=== PATIENT | female | born 1980 | race African-American/Black ===

== ENCOUNTER → 2016-08-05 | Outpatient (CLI) | payer OTHER ==
[~2016-08-05] MED LIST: BENADRYL25 MG PO; BIRTH CONTROL; CALCIUM 500 +1 EAC5 PO; FIBER500 MG PO; FLEET ENEMA118 ML; IBUPROFEN 600600 M1 PO; MULTIVITAMINS PO; TRAMADOL 50 MG50 MG PO; VISTARIL 25 MG25 M1 PO; ZOFRAN ODT4 MG PO
== END ==
LOC: CAT 15:39
DX: R10.30 Lower abdominal pain, unspecified (principal)

== ENCOUNTER → 2017-02-17 | Outpatient (CLI) | payer OTHER ==
[~2017-02-17] MED LIST changes: +HYDROCODONE-AP1 EAC6 PO
== END ==
LOC: MRI 08:15
DX: S83.251A Bucket-handle tear of lateral meniscus, current injury, right knee, initial encounter (principal); S89.91XA Unspecified injury of right lower leg, initial encounter; M25.461 Effusion, right knee; M94.261 Chondromalacia, right knee; X58.XXXA Exposure to other specified factors, initial encounter; Y93.89 Activity, other specified; Y92.89 Other specified places as the place of occurrence of the external cause; Y99.8 Other external cause status

== ENCOUNTER 2017-04-28 12:42 | Emergency (ER) | payer OTHER ==
[~2017-04-28] VITALS: Ht 149.9 cm; Wt 63.5 kg
[2017-04-28 13:16] LABS: URINE BILIRUBIN NEGATIVE (Negative); URINE BLOOD NEGATIVE (Negative); URINE CLARITY CLEAR; URINE COLOR YELLOW; URINE GLUCOSE-RANDOM* NEGATIVE (Negative); URINE KETONES 3+ (Negative); URINE LEUKOCYTES NEGATIVE (Negative); URINE NITRITE NEGATIVE (Negative); URINE PROTEIN (DIPSTICK) NEGATIVE (Negative); URINE SPECIFIC GRAVITY 1.025 (1.005-1.035); URINE UROBILINOGEN 0.2 E.U./dl (0.2-1.0)
[2017-04-28 13:20] LABS: ABSOLUTE NEUTROPHILS 5.8 thou/uL (1.4-8.2); BASOPHILS 0.7 % (0.0-2.0); EOSINOPHILS 0.4 % (0.0-3.0); HEMATOCRIT 41.7 % (37.0-47.0); HEMOGLOBIN 14.1 gm/dL (12.0-15.0); LYMPHOCYTES 21.6 % (24.0-44.0); MCH 29.5 pg (26.0-34.0); MCHC 33.8 g/dL (28.0-37.0); MCV 87.4 fL (80.0-100.0); MONOCYTES 8.6 % (1.0-8.0); PLATELET COUNT 190 thou/uL (150-400); POLYS 68.7 % (36.0-66.0); RBC 4.77 mil/uL (4.20-5.00); RDW 12.8 % (10.5-14.5); WBC 8.5 thou/uL (4.0-11.0)
[2017-04-28 13:22] LABS: URINE REDUCING SUBSTANCE NEGATIVE
[2017-04-28 13:26] LABS: CALCIUM 9.7 mg/dL (8.5-10.1); CREATININE 0.7 mg/dL (0.6-1.0); POTASSIUM 3.1 mmol/L (3.5-5.1)
[2017-04-28 13:31] LABS: ALBUMIN 3.8 g/dL (3.4-5.0); DIRECT BILIRUBIN 0.1 mg/dL (<0.1-0.3); TOTAL BILIRUBIN 0.6 mg/dL (<0.1-1.0); TOTAL PROTEIN 7.9 g/dL (6.4-8.2)
[2017-04-28] MEDS ORDERED: ONDANSETRON HCL4 M2 PO (13:51)
[2017-04-28 14:06] VITALS: BP 125/72
== END 2017-04-28 14:09 | disposition home or self-care (01) ==
LOC: ER 12:42
PROVIDERS: Nurse Practitioner
DX: O26.899 Other specified pregnancy related conditions, unspecified trimester (principal); Z3A.00 Weeks of gestation of pregnancy not specified; R11.2 Nausea with vomiting, unspecified

== ENCOUNTER → 2018-08-24 | Outpatient (CLI) | payer OTHER ==
[~2018-08-24] MED LIST changes: +ONDANSETRON HCL4 M2 PO
== END ==
LOC: RAD 11:26
DX: Z12.31 Encounter for screening mammogram for malignant neoplasm of breast (principal)

== ENCOUNTER → 2018-08-25 | Outpatient (CLI) | payer OTHER | LOC: ULTRA 11:12 | DX: N63.10 Unspecified lump in the right breast, unspecified quadrant (principal) ==

== ENCOUNTER → 2019-04-12 | Outpatient (CLI) | payer OTHER | LOC: RAD 11:40 | DX: N63.10 Unspecified lump in the right breast, unspecified quadrant (principal) ==

== ENCOUNTER → 2019-04-12 | Outpatient (CLI) | payer OTHER | LOC: RAD 11:06 | DX: N63.41 Unspecified lump in right breast, subareolar (principal) ==

== ENCOUNTER → 2019-08-17 | Outpatient (CLI) | payer OTHER | LOC: ULTRA 08:25 | DX: N83.202 Unspecified ovarian cyst, left side (principal) ==

== ENCOUNTER → 2019-10-19 | Outpatient (CLI) | payer OTHER | LOC: ULTRA 12:17 | PROVIDERS: ATTEND Obstetrics & Gynecology | DX: N63.10 Unspecified lump in the right breast, unspecified quadrant (principal) ==

== ENCOUNTER → 2020-02-29 | Outpatient (CLI) | payer OTHER | LOC: LAB 14:59 | PROVIDERS: ATTEND Family Medicine | DX: Z20.828 Contact with and (suspected) exposure to other viral communicable diseases (principal) ==

== ENCOUNTER → 2020-04-08 | Outpatient (CLI) | payer OTHER | LOC: LAB 14:37 | PROVIDERS: ATTEND Family Medicine | DX: Z20.822 Contact with and (suspected) exposure to COVID-19 (principal) ==

== ENCOUNTER → 2020-07-11 | Outpatient (CLI) | payer OTHER | LOC: LAB 14:25 | PROVIDERS: ATTEND Family Medicine | DX: R05 Cough (principal); R50.9 Fever, unspecified; Z20.822 Contact with and (suspected) exposure to COVID-19 ==

== ENCOUNTER → 2020-10-16 | Outpatient (CLI) | payer OTHER | LOC: BC 10-10 12:01 | PROVIDERS: ATTEND Obstetrics & Gynecology | DX: Z12.31 Encounter for screening mammogram for malignant neoplasm of breast (principal) ==

== ENCOUNTER 2020-10-24 09:29 | Emergency (ER) | payer OTHER ==
[~2020-10-24] VITALS: Ht 149.9 cm; Wt 74.8 kg
[2020-10-24] MEDS ORDERED: OMEPRAZOLE20 M1 PO (09:43)
[2020-10-24 10:08] LABS: URINE BILIRUBIN NEGATIVE (Negative); URINE BLOOD NEGATIVE (Negative); URINE CLARITY CLEAR; URINE COLOR YELLOW; URINE GLUCOSE-RANDOM* NEGATIVE (Negative); URINE KETONES NEGATIVE (Negative); URINE LEUKOCYTES-REFLEX NEGATIVE (Negative); URINE NITRITE-REFLEX NEGATIVE (Negative); URINE PROTEIN (DIPSTICK) NEGATIVE (Negative); URINE SPECIFIC GRAVITY 1.025 (1.005-1.035); URINE UROBILINOGEN 0.2 E.U./dl (0.2-1.0)
[2020-10-24 10:10] LABS: ABSOLUTE NEUTROPHILS 3.3 thou/uL (1.4-8.2); EOSINOPHILS 1.2 % (0.0-3.0); HEMATOCRIT 41.6 % (37.0-47.0); HEMOGLOBIN 13.8 gm/dL (12.0-15.0); LYMPHOCYTES 31.6 % (24.0-44.0); MCH 28.8 pg (26.0-34.0); MCHC 33.2 g/dL (28.0-37.0); MCV 86.8 fL (80.0-100.0); MONOCYTES 7.6 % (1.0-8.0); POLYS 58.6 % (36.0-66.0); RBC 4.79 mil/uL (4.20-5.00); RDW 13.6 % (10.5-14.5); WBC 5.7 thou/uL (4.0-11.0)
[2020-10-24 10:19] LABS: ANION GAP 8 mmol/L (7-16); BUN 16 mg/dL (7-18); CALCIUM 9.1 mg/dL (8.5-10.1); CHLORIDE 104 mmol/L (98-107); CO2 27 mmol/L (21-32); CREATININE 0.8 mg/dL (0.6-1.0); GLUCOSE 85 mg/dL (74-106); POTASSIUM 3.8 mmol/L (3.5-5.1); SODIUM 139 mmol/L (136-145)
[2020-10-24 10:27] LABS: TROPONIN-I <0.06 ng/mL (<0.06)
[2020-10-24 10:53] LABS: LARGE PLATELETS SEVERAL; PLATELET COUNT 157 thou/uL (150-400); PLATELET ESTIMATE NORMAL
[2020-10-24] MEDS ORDERED: MECLIZINE HCL25 M1 PO (11:16)
[2020-10-24 12:02] VITALS: BP 130/89
--- NOTE | 2020-10-24 14:14 | EKG ---
[place] [address] [facility] [employer] [place] [address] ELECTROCARDIOGRAM REPORT Name: TEMI COLIN KINSEYMARNI Room #: DEP Trever#: [id number] Admission: 10/24/20 Attend Phys: Discharge: 10/24/20 Date of : 76 Report #: [id number] [facility] ED Test Date: 2020-10-24 Test Time: 09:57:11 Pat Name: TEMI COLIN Department: Room: Gender: F City Designer: cheryl : 1980 Requested By: Tao Saldaña Order Number: [id number] MD: José Miguel Knight Measurements Intervals [place] Rate: 78 P: 36 PA: 160 QRS: 19 QRSD: 86 T: 20 QT: 353 QTc: 403 Interpretive Statements Sinus rhythm Compared to ECG 04/04/2015 01:24:33 Sinus tachycardia no longer present ST (T wave) deviation no longer present Electronically Signed On 10-24-2020 14:14:32 CDT by José Miguel Knight [email or web address] <ELECTRONICALLY SIGNED> By: José Miguel Knight MD, [facility] 10/24/20 [id number] José Miguel Knight MD, FACC /EPI
== END 2020-10-24 12:02 | disposition home or self-care (01) ==
LOC: ER 09:29
PROVIDERS: Emergency Medicine
DX: R42 Dizziness and giddiness (principal); Z20.822 Contact with and (suspected) exposure to COVID-19; E11.9 Type 2 diabetes mellitus without complications; Z79.899 Other long term (current) drug therapy; Z88.1 Allergy status to other antibiotic agents